=== PATIENT | male | born 1990 | race Caucasian/White ===

== ENCOUNTER 2022-03-08 01:31 | Emergency (ER) | payer SELFPAY ==
[~2022-03-08] VITALS: Ht 172.7 cm; Wt 77.0 kg
[2022-03-08 01:35] VITALS: BP 143/101
[2022-03-08] MEDS ORDERED: SODIUM CHLORIDE 0.9% 1,000 ML IV SCH (03:00)
[2022-03-08] MEDS ORDERED: METHYLPREDNISOLONE SOD SUCC 125 MG/2 ML VIAL IV ONE (03:00)
[2022-03-08] MEDS ORDERED: DIPHENHYDRAMINE 50MG/ML VIAL IV ONE (03:00)
== END 2022-03-08 06:07 | disposition left against medical advice (07) ==
LOC: ER 01:31
DX: Z53.21 Procedure and treatment not carried out due to patient leaving prior to being seen by health care provider (principal); R22.1 Localized swelling, mass and lump, neck; R94.31 Abnormal electrocardiogram [ECG] [EKG]; Z91.013 Allergy to seafood
CPT/HCPCS: 93005